=== PATIENT | female | born 1975 | race Caucasian/White ===

== ENCOUNTER 2018-07-13 18:49 | Emergency (ER) | payer BC ==
[2018-07-13] MEDS ORDERED: ACYCLOVIR 200 MG CAPSULE PO ONE (19:21)
--- NOTE | 2018-07-13 19:23 | Emergency Department Record ---
History of Present Illness - General Chief complaint: Rash Stated complaint: RASH Time Seen by Provider: 07/13/18 19:21 Source: Patient Mode of Arrival: Ambulatory Limitations: No limitations - History of Present Illness Initial comments: 43 yo female presents to ED for evaluation of a painful rash to the right inguinal region. Patient noticed the rash earlier today, reports mild-moderate associated pain symptoms from the area of the rash. Patient reports a history of autoimmune issues, reports taking Prednisone daily. Patient denies fevers, chills, or recent illness. Patient also reports that she has been under a lot of stress. MD complaint: Rash Onset/Timin -: Days(s) Location: Genitals Severity: Moderate Improves with: None Worsens with: None Context: None Associated symptoms: Denies other symptoms Treatments Prior to Arrival: None - Related Data Home Medications Medication Instructions Recorded Confirmed Last Taken Levothyroxine Sodium 112 mcg PO DAILY 07/13/18 07/13/18 07/13/18 Liothyronine Sodium [Cytomel] 5 mcg PO DAILY 07/13/18 07/13/18 07/13/18 Prednisone [Prednisone 1Mg] 1 mg PO DAILY 07/13/18 07/13/18 07/13/18 Previous Rx's Medication Instructions Recorded Acyclovir [Zovirax] 800 mg PO 5XD #35 tablet 07/13/18 Hydrocodone/APAP 5/325Mg [[place] 1 each PO Q6H PRN #9 tab 07/13/18 5Mg/325Mg] Allergies Allergy/AdvReac Type Severity Reaction Status Date / Time erythromycin base Allergy RASH Verified 07/13/18 19:11 Penicillins Allergy RASH Verified 07/13/18 19:11 Travel Screening - Travel/Exposure Within Last 30 Days Have you traveled within the last 30 days?: No - Travel/Exposure Within Last Year Have you traveled outside the [place] in the last year?: No - Additonal Travel Details Have you been exposed to anyone with a communicable illness?: No - Travel Symptoms Symptom Screening: None Review of Systems Constitutional: Denies: Chills, Fever, Malaise, Night sweats Eyes: Denies: Eye discharge, Eye pain ENT: Denies: Congestion, Ear pain, Epistaxis Respiratory: Denies: Cough, Dyspnea Cardiovascular: Denies: Chest pain, Dyspnea on exertion Endocrine: Denies: Fatigue, Heat or cold intolerance Gastrointestinal: Denies: Abdominal pain, Nausea, Vomiting Genitourinary: Denies: Incontinence, Retention Musculoskeletal: Denies: Arthralgia, Back pain Skin: Denies: Bruising, Change in color Neurological: Denies: Abnormal gait, Confusion, Headache, Seizure Psychiatric: Denies: Anxiety Hematological/Lymphatic: Denies: Anemia, Blood Clots Past Medical History - SOCIAL HISTORY Smoking Status: Never smoker Alcohol Use: None Drug Use: None - RESPIRATORY Hx Respiratory Disorders: No - CARDIOVASCULAR Hx Cardio Disorders: No - NEURO Hx Neuro Disorders: No - GI Hx GI Disorders: No - Hx Genitourinary Disorders: No - ENDOCRINE Hx Endocrine Disorders: No - MUSCULOSKELETAL Hx Musculoskeletal Disorders: Yes Comment:: esnopheliac fascitis - PSYCH Hx Psych Problems: No - HEMATOLOGY/ONCOLOGY Hx Hematology/Oncology Disorders: No Family Medical History Any Significant Family History?: Yes Family Hx Comment (NOT TO BE USED IN PLACE OF ITEMS BELOW): myositis. father hypothyroid Hx Cancer: Father Hx Resp Disorders: Father Physical Exam - General General Appearance: Alert, Oriented x3, Cooperative, Mild distress Limitations: No limitations - Head Head exam: Atraumatic, Normocephalic, Normal inspection Head exam detail: negative: Abrasion, Contusion, Hua's sign, General tenderness, Hematoma, Laceration - Eye Eye exam: Normal appearance. negative: Conjunctival injection, Periorbital swelling, Periorbital tenderness, Scleral icterus - ENT Ear exam: negative: Auricular hematoma, Auricular trauma Nasal Exam: negative: Active bleeding, Discharge, Dried blood, Foreign body Mouth exam: negative: Drooling, Laceration, Muffled voice, Tongue elevation - Neck Neck exam: Normal inspection. negative: Meningismus, Tenderness - Respiratory Respiratory exam: Normal lung sounds bilaterally. negative: Rales, Respiratory distress, Rhonchi, Stridor - Cardiovascular Cardiovascular Exam: Regular rate, Normal rhythm, Normal heart sounds - GI/Abdominal GI/Abdominal exam: Soft. negative: Rebound, Rigid, Tenderness - Rectal Rectal exam: Deferred - exam: Deferred - Extremities Extremities exam: Normal inspection. negative: Pedal edema, Tenderness - Back Back exam: Denies: CVA tenderness (R), CVA tenderness (L) - Neurological Neurological exam: Alert, Normal gait, Oriented X3 - Psychiatric Psychiatric exam: Normal affect, Normal mood - Skin Skin exam: Rash Type of lesion: Rash Distribution of rash: Genitals Description of rash: Blisters Course Vital Signs 07/13/18 18:59 Temperature 98 F Pulse Rate 82 Respiratory 16 Rate Blood Pressure 107/78 Pulse Ox 97 - Reevaluation(s) Reevaluation #1: 07/13/18 19:32 Patient has several (2-3) areas of grouped vesicles to the right inner thigh Does not cross midline History and physical;l examination are c/w shingles of the right inner thigh. No clinical evidence for genital herpes on examination. Will treat with Acyclovir and [place] as needed with instructions for close follow -up with her PCP. Disposition Disposition: Discharge Clinical Impression: Shingles Qualifiers: Herpes zoster complications: without complications Qualified Code(s): B02.9 - Zoster without complications Disposition: Home, Self-Care Condition: (2) Stable Instructions: Shingles (ED) Additional Instructions: Return to ED if your symptoms worsen or if you have any concerns. Acyclovir as directed. Follow-up with your family doctor in 3-5 days as directed. Prescriptions: Acyclovir [Zovirax] 800 mg PO 5XD #35 tablet Hydrocodone/APAP 5/325Mg [[place] 5Mg/325Mg] 1 each PO Q6H PRN #9 tab PRN Reason: Pain - Mod To Severe (5-10) Forms: Patient Portal Access Time of Disposition: 19:23 Quality - Quality Measures Quality Measures: N/A - Blood Pressure Screening Does Patient Have Any of the Following: No Blood Pressure Classification: Normal BP Reading Systolic Measurement: 107 Diastolic Measurement: 78 Screening for High Blood Pressure: < Normal BP, F/U Not Required > [[id number]]
[2018-07-13] MEDS ORDERED: HYDROCODONE/APAP 5/325MG TABLET PO ONE (19:24)
== END 2018-07-13 19:40 | disposition home or self-care (01) ==
LOC: ER 18:49
DX: B02.9 Zoster without complications (principal)
CPT/HCPCS: 99282